=== PATIENT | male | born 1980 | race Two or more races ===

== ENCOUNTER 2018-12-05 05:44 | Day surgery (SDC) | payer OTHER ==
[~2018-12-05 05:44] MED LIST: AMLODIPINE BESYL5 MG PO; LOSARTAN-HCTZ1 EAC1 PO
[2018-12-05] MEDS ORDERED: RECTICARE30 GM TOP (08:59)
[2018-12-05] MEDS ORDERED: PERCOCET 5-3251 EACH PO (08:59)
== END 2018-12-05 13:15 | disposition home or self-care (01) ==
LOC: CIR.AMB 05:44
DX: K64.8 Other hemorrhoids (principal)

== ENCOUNTER 2019-06-06 10:47 | Day surgery (SDC) | payer OTHER ==
[~2019-06-06 10:47] MED LIST changes: +PERCOCET 5-3251 EACH PO; +RECTICARE30 GM TOP
== END 2019-06-06 16:00 | disposition home or self-care (01) ==
LOC: AMB-ENDOS 10:47
DX: K62.89 Other specified diseases of anus and rectum (principal); K52.89 Other specified noninfective gastroenteritis and colitis; K63.3 Ulcer of intestine; K57.30 Diverticulosis of large intestine without perforation or abscess without bleeding

== ENCOUNTER 2022-08-13 10:45 | Inpatient (IN) | payer OTHER ==
[~2022-08-13] VITALS: Ht 167.6 cm; Wt 79.4 kg
[2022-08-13] MEDS ORDERED: AMLODIPINE-OLM1 EACH PO (13:12)
[2022-08-17] MEDS ORDERED: INTESTINEX680 M1 (14:04)
[2022-08-17] MEDS ORDERED: HYDROCHLOROTHIA25 MG (14:04)
[2022-08-17] MEDS ORDERED: LOSARTAN POTAS100 MG (14:04)
[2022-08-17] MEDS ORDERED: PANTOPRAZOLE SO40 MG (14:04)
[2022-08-17] MEDS ORDERED: CLONAZEPAM0.5 MG (14:04)
[2022-08-17] MEDS ORDERED: AMLODIPINE BESYL5 MG (14:05)
[2022-08-20] MEDS ORDERED: INTESTINEX680 M1 PO (08:41)
[2022-08-20] MEDS ORDERED: TRAM1TAB98 PO (08:42)
[2022-08-20] MEDS ORDERED: PEPCID AC20 MG PO (08:42)
== END 2022-08-20 10:15 | disposition home or self-care (01) | DRG 331 ==
LOC: O/R 08-17 08:43 → SURG 08-17 10:45
PROVIDERS: ADMIT Surgery; ATTEND Surgery
PROC: 0DBP4ZZ Excision of Rectum, Percutaneous Endoscopic Approach (ICD-10-PCS; 2022-08-17)
PROC: 0DBU4ZZ Excision of Omentum, Percutaneous Endoscopic Approach (ICD-10-PCS; 2022-08-17)
PROC: 0DJD8ZZ Inspection of Lower Intestinal Tract, Via Natural or Artificial Opening Endoscopic (ICD-10-PCS; 2022-08-17)
PROC: 0DTN4ZZ Resection of Sigmoid Colon, Percutaneous Endoscopic Approach (ICD-10-PCS; principal; 2022-08-17 12:00)
DX: K57.20 Diverticulitis of large intestine with perforation and abscess without bleeding (principal); R19.5 Other fecal abnormalities; K64.2 Third degree hemorrhoids; K66.0 Peritoneal adhesions (postprocedural) (postinfection)